=== PATIENT | female | born 1970 | race Caucasian/White ===

== ENCOUNTER → 2016-06-10 | Outpatient (CLI) | payer OTHER | LOC: MAMO 08:20 | DX: Z12.31 Encounter for screening mammogram for malignant neoplasm of breast (principal) | CPT/HCPCS: G0202 ==

== ENCOUNTER → 2020-04-03 | Outpatient (CLI) | payer OTHER ==
[~2020-04-03] MED LIST: ARNUITY ELLIP200 MCG INH; ASPIRIN EC81 MG PO; DECADRON6 MG PO; GLIPIZIDE ER10 MG PO; HYDROCHLOROTHIA25 MG PO; IBUPROFEN600 MG PO; LEVOTHYROXINE75 MCG PO; MONTELUKAST SOD10 MG PO; NORCO 5-325 TA1 EACH PO; POTASSIUM CHLO10 ME2 PO; PREMARIN0.9 MG PO; TESSALON PERLE100 MG PO; Voltaren Gel 1 % TP
== END ==
LOC: EXRD 15:21
DX: Z09 Encounter for follow-up examination after completed treatment for conditions other than malignant neoplasm (principal); Z86.16 Personal history of COVID-19; R91.8 Other nonspecific abnormal finding of lung field
CPT/HCPCS: 71046

== ENCOUNTER → 2021-05-24 | Outpatient (CLI) | payer OTHER | LOC: HEART 5 03-28 08:00 | DX: Z01.810 Encounter for preprocedural cardiovascular examination (principal); R00.2 Palpitations; I20.9 Angina pectoris, unspecified; R06.02 Shortness of breath; I08.1 Rheumatic disorders of both mitral and tricuspid valves | CPT/HCPCS: 93306 ==

== ENCOUNTER → 2021-08-13 | Outpatient (CLI) | payer OTHER | LOC: MAMO 13:00 | DX: Z12.31 Encounter for screening mammogram for malignant neoplasm of breast (principal) | CPT/HCPCS: 77063; 77067 ==

== ENCOUNTER → 2021-09-26 | Outpatient (CLI) | payer OTHER | LOC: RAD 16:00 | DX: K59.00 Constipation, unspecified (principal); R14.3 Flatulence | CPT/HCPCS: 74018 ==

== ENCOUNTER 2021-10-13 14:20 | Emergency (ER) | payer OTHER | END 2021-10-13 16:38 | disposition home or self-care (01) | LOC: ER1 14:20 | DX: R51.9 Headache, unspecified (principal); Z20.822 Contact with and (suspected) exposure to COVID-19; E11.9 Type 2 diabetes mellitus without complications; J45.909 Unspecified asthma, uncomplicated | CPT/HCPCS: 0240U; 99283 ==